=== PATIENT | male | born 1985 | race Caucasian/White ===

== ENCOUNTER 2017-05-25 20:38 | Emergency (ER) | payer BC ==
[2017-05-25 20:43] VITALS: BP 138/75; PULSE 98; RESP 16; TEMP 98.8; O2SAT 98
[2017-05-25] MEDS ORDERED: TDAP Vaccine 0.5 mL Syr IM ONE (20:58)
--- NOTE | 2017-05-25 21:09 | ED PDOC ---
HPI: Skin/Bite Injury Time Seen by Provider: 05/25/17 20:46 Chief Complaint (Nursing): Bite Chief Complaint (Provider): Dog bite History Per: Patient History/Exam Limitations: no limitations Onset/Duration Of Symptoms: Mins (x10 [employer]ORDINATOR) Location Of Injury: Left: Mouth (top of lips) Additional Complaint(s): Antonio Mcduffie is a 32 year old male, with a past medical history of depression, who presents to the emergency department due to a dog bite in upper lip. Patient is in pain but is able to speak, and move his jaw without much distress. He reports that he was playing with his dog when the dog got frustrated and bit the top of his lips. Last time the patient received a tetanus shot was more than 10 years ago. PMD: None provided - Animal Bite Description Of The Attack: Playing With Animal Description Of The Animal: Family Pet Animal Appears: Well Animal's Immunization Status: [facility] Animal Control Notified: No Past Medical History Reviewed: Historical Data, Nursing Documentation, Vital Signs Vital Signs: Last Vital Signs Temp 98.8 F 05/25/17 20:41 Pulse 98 H 05/25/17 20:41 Resp 16 05/25/17 20:41 BP 138/75 05/25/17 20:41 Pulse Ox 98 05/25/17 22:03 - Medical History PMH: No Chronic Diseases, Depression - Family History Family History: States: Unknown Family Hx - Social History Current smoker - smoking cessation education provided: Yes (Some days) Alcohol: None Drugs: Denies - Immunization History Hx Tetanus Toxoid Vaccination: No Hx Influenza Vaccination: No Hx Pneumococcal Vaccination: No - Home Medications Home Medications: Ambulatory Orders Medication Instructions Recorded Amoxicillin/Clavulanate [Augmentin 1 tab PO BID #13 tab 05/25/17 875 MG-125 MG] - Allergies Allergies/Adverse Reactions: Allergies Allergy/AdvReac Type Severity Reaction Status Date / Time No Known Allergies Allergy Verified 05/25/17 20:40 Review of Systems ROS Statement: Except As Marked, All Systems Reviewed And Found Negative Skin: Positive for: Other (Lacerations to upper lips) Physical Exam - Reviewed Nursing Documentation Reviewed: Yes Vital Signs Reviewed: Yes - Physical Exam Appears: Positive for: Well, Non-toxic, No Acute Distress Head Exam: Positive for: ATRAUMATIC, NORMAL INSPECTION, NORMOCEPHALIC Skin: Positive for: Normal Color, Warm, Dry Eye Exam: Positive for: EOMI, Normal appearance, PERRL Cardiovascular/Chest: Positive for: Regular Rate, Rhythm Respiratory: Positive for: CNT, Normal Breath Sounds Gastrointestinal/Abdominal: Positive for: Normal Exam, Bowel Sounds, Soft Extremity: Positive for: Normal ROM Neurologic/Psych: Positive for: Alert, Oriented Comments: Multiple lacerations across vermilion border. 1x 2cm and 1x 1.5cm linear laceration across vermilion border with partial thickness and good wound edge. Under nose on left side x3 0.5cm smaller lacerations. Mucosal normal and no active bleeding. - ECG O2 Sat by Pulse Oximetry: 98 (RA) Pulse Ox Interpretation: Normal - Progress ED Course And Treament: plastics in ED to repair Medical Decision Making Medical Decision Making: Initial Impression: Multiple lacerations across vermilion border Initial Plan: --Boostrix Vaccine Inj 0.5ml IM Once --reevaluation Dr. Amy Croft, Plastic Surgery, was consulted and will come to ER in 1hr pt will f.u with MD Lang will be d/c with Augmentin first dose PO in ED Scribe Attestation: Documented by Beau Maynard, acting as a scribe for Keiry VERAS. Provider Scribe Attestation: All medical record entries made by the Scribe were at my direction and personally dictated by me. I have reviewed the chart and agree that the record accurately reflects my personal performance of the history, physical exam, medical decision making, and the department course for this patient. I have also personally directed, reviewed, and agree with the discharge instructions and disposition. Disposition - Clinical Impression Clinical Impression: Animal bite wound - Patient ED Disposition Is Patient to be Admitted: No Counseled Patient/Family Regarding: Diagnosis, Need For Followup, Rx Given - Disposition Referrals: Amy Croft [Medical Doctor] - Disposition: Routine/Home Disposition Time: 22:49 Condition: STABLE Prescriptions: Amoxicillin/Clavulanate [Augmentin 875 MG-125 MG] 1 tab PO BID #13 tab Instructions: Animal Bite (ED) Forms: [employer] (Albanian) Print Language: CAMEROONIAN
[2017-05-25] MEDS ORDERED: Lidocaine 1% w Epi 1:100,000 Inj ONE (22:00)
[2017-05-25] MEDS ORDERED: Lidocaine/Epi 1% 1:100000 20 ML IJ ONE (22:01)
[2017-05-25] MEDS ORDERED: Amoxicillin-Clav 875-125 mg Tab PO STA (22:48)
== END 2017-05-25 23:10 | disposition home or self-care (01) ==
LOC: H.ER 20:38
DX: S01.511A Laceration without foreign body of lip, initial encounter (principal); W54.0XXA Bitten by dog, initial encounter; Z86.59 Personal history of other mental and behavioral disorders